=== PATIENT | female | born 1990 | race Caucasian/White ===

== ENCOUNTER 2021-11-09 14:51 | Emergency (ER) | payer BC ==
[2021-11-09] MEDS ORDERED: LIDOCAINE 5% TOPICAL PATCH TP ONE (15:05)
[2021-11-09] MEDS ORDERED: METHOCARBAMOL 500 MG TABLET PO ONE (15:05)
[2021-11-09] MEDS ORDERED: IBUPROFEN 600 MG TABLET (FP) PO ONE ×2 (15:05→15:07)
[2021-11-09] MEDS ORDERED: METHOCARBAMOL 500 MG TABLET ONE (15:08)
[2021-11-09] MEDS ORDERED: LIDOCAINE 5% TOPICAL PATCH ONE (15:08)
[2021-11-09 15:27] VITALS: BP 115/80; PULSE 60; RESP 16; TEMP 98.9; BMI 22.3
[2021-11-09] MEDS ORDERED: LIDOCAINE PATCH REMOVAL MC SCH (22:00)
== END 2021-11-09 16:46 | disposition home or self-care (01) ==
LOC: FER 14:51
DX: M54.2 Cervicalgia (principal); V47.5XXA Car driver injured in collision with fixed or stationary object in traffic accident, initial encounter
CPT/HCPCS: 72125-TC; 99284-25